=== PATIENT | female | born 1945 | race Caucasian/White ===

== ENCOUNTER 2022-10-07 09:24 | Day surgery (SDC) | payer MEDICARE, BC ==
[~2022-10-07 09:24] MED LIST: Lactated Ringers 1,000 ML IV SCH; Sodium Chloride 0.9% 10 ML Syringe FLUSH PRN
[2022-10-07] MEDS ORDERED: Propofol 200 MG/20 ML SDV IV ONE (09:25)
[2022-10-07 10:27] VITALS: BP 157/67; PULSE 60
== END 2022-10-07 13:05 | disposition home or self-care (01) ==
LOC: FB.SDS 09:24
PROVIDERS: ATTEND Nurse Practitioner Family
DX: K92.1 Melena (principal); K57.30 Diverticulosis of large intestine without perforation or abscess without bleeding; K64.4 Residual hemorrhoidal skin tags; R73.03 Prediabetes; E78.5 Hyperlipidemia, unspecified; E03.8 Other specified hypothyroidism; E66.01 Morbid (severe) obesity due to excess calories; I12.9 Hypertensive chronic kidney disease with stage 1 through stage 4 chronic kidney disease, or unspecified chronic kidney disease; N18.30 Chronic kidney disease, stage 3 unspecified; H25.13 Age-related nuclear cataract, bilateral; Z80.0 Family history of malignant neoplasm of digestive organs; Z79.899 Other long term (current) drug therapy; Z79.82 Long term (current) use of aspirin; Z98.890 Other specified postprocedural states; Z68.41 Body mass index [BMI] 40.0-44.9, adult
CPT/HCPCS: 00812; J2704; J7120